=== PATIENT | female | born 1965 | race Caucasian/White ===

== ENCOUNTER 2025-06-22 17:34 | Day surgery (SDC) | payer OTHER, SELFPAY ==
[2025-06-22] VITALS (13 sets, daily range): BP systolic 102–148; BP diastolic 41–78; BMI 35.5; BMI 34.0
--- NOTE | 2025-06-22 11:28 | ED.GENMED ---
History of Present Illness
<Trey Garcia PA-C - Last Filed: 06/22/25 14:26>
General
Chief Complaint: Abdominal Pain
Source: patient
Exam Limitations: none
Time Seen by Provider: 06/22/25 11:16
History of Present Illness
History of Present Illness:
59-year-old female otherwise quite healthy presents complaining of worsening abdominal pain that is now in the right lower quadrant. This started yesterday. There is some nausea without vomiting. She notes a slightly decreased appetite notes the
pain is slightly improved in a position. Pain does not radiate to the back no associated urinary symptoms. She still states she is getting her cycle every now and then. No prior abdominal surgical history. She is here visiting from
[place]. No other complaints
Phy Exam
<Trey Garcia PA-C - Last Filed: 06/22/25 14:26>
Physical Exam
Physical Exam:
General: Well-appearing female no acute respiratory distress
HEENT: Normal cephalic atraumatic heart: Regular rate and rhythm
Lungs: Clear no wheeze
Abdomen is soft tender to the right lower quadrant mild guarding no rebound nondistended
Extremities: No cyanosis or edema
Course
<Trey Garcia PA-C - Last Filed: 06/22/25 14:26>
Orders/Labs/Results
Orders:
Orders
06/22/25 11:27
CT Abd/pelvis W Iv Cont Urgent
Comment:
Reason For Exam: rlq pain
Ketorolac [Toradol] 15 mg IV NOW STA
06/22/25 11:28
Test Result ONCE
06/22/25 11:36
Complete Blood Count/With Diff Urgent
06/22/25 11:37
Comprehensive Metabolic Panel Urgent
HCG, Serum Qualitative Screen Urgent
06/22/25 11:53
0.9% Sodium Chloride 1000 ml [Nss] 1,000 ml IV BOLUS
06/22/25 12:00
0.9% Sodium Chloride 1000 ml [Nss] 1,000 ml IV 2,000 mls/hr
06/22/25 12:48
Urinalysis Reflex To Culture Urgent
Date Specimen was Collected: 06/22/25
Time Specimen was Collected: 11:31
Urine Microscopic Reflex Cult Urgent
06/22/25 14:18
Piperacillin/Tazo 3.375 Gram [Zosyn] 3.375 gram in 50 ml IV NOW
Abnormal Lab Results
06/22/25 06/22/25 06/22/25
11:36 11:37 12:48
WBC 14.4 H 10^3/uL
(4.8-10.8)
MPV 10.8 H fL
(7.4-10.4)
Abs Immat Gran (auto) 0.1 H 10^3/uL
(0-0.05)
Absolute Neuts (auto) 12.4 H 10^3/uL
(1.4-6.5)
Absolute Lymphs (auto) 1.1 L 10^3/uL
(1.2-3.4)
Absolute Monos (auto) 0.8 H 10^3/uL
(0.1-0.6)
Neutrophils % 85.9 H %
(42.2-75.2)
Lymphocytes % 7.6 L %
(20.5-51.1)
Glucose 115 H mg/dl
(70-99)
Total Bilirubin 1.6 H mg/dl
(0.2-1.3)
Ur Occult Blood Reflex 1+ A
(Negative)
Urine RBC 3-6 A /HPF
(0-2)
Urine Bacteria (Reflex) Few A
(Negative)
06/22/25 11:36
06/22/25 11:37
Vital Signs
Initial and Last Documented VS:
Initial Vital Signs
Temp Pulse Resp BP Pulse Ox
36.6 C 103 18 148/78 99
06/22/25 10:52 06/22/25 10:52 06/22/25 10:52 06/22/25 10:52 06/22/25 10:52
Last Documented Vital Signs
Temp Pulse Resp BP Pulse Ox
37.1 C 85 16 121/50 95
06/22/25 11:46 06/22/25 14:16 06/22/25 14:16 06/22/25 14:16 06/22/25 14:16
<Yovani Hughes MD - Last Filed: 06/22/25 14:30>
Orders/Labs/Results
Orders:
Orders
06/22/25 11:27
CT Abd/pelvis W Iv Cont Urgent
Comment:
Reason For Exam: rlq pain
Ketorolac [Toradol] 15 mg IV NOW STA
06/22/25 11:28
Test Result ONCE
06/22/25 11:36
Complete Blood Count/With Diff Urgent
06/22/25 11:37
Comprehensive Metabolic Panel Urgent
HCG, Serum Qualitative Screen Urgent
06/22/25 11:53
0.9% Sodium Chloride 1000 ml [Nss] 1,000 ml IV BOLUS
06/22/25 12:00
0.9% Sodium Chloride 1000 ml [Nss] 1,000 ml IV 2,000 mls/hr
06/22/25 12:48
Urinalysis Reflex To Culture Urgent
Date Specimen was Collected: 06/22/25
Time Specimen was Collected: 11:31
Urine Microscopic Reflex Cult Urgent
06/22/25 14:18
Piperacillin/Tazo 3.375 Gram [Zosyn] 3.375 gram in 50 ml IV NOW
Abnormal Lab Results
0906/22/25 06/22/25
11:36 11:37 12:48
WBC 14.4 H 10^3/uL
(4.8-10.8)
MPV 10.8 H fL
(7.4-10.4)
Abs Immat Gran (auto) 0.1 H 10^3/uL
(0-0.05)
Absolute Neuts (auto) 12.4 H 10^3/uL
(1.4-6.5)
Absolute Lymphs (auto) 1.1 L 10^3/uL
(1.2-3.4)
Absolute Monos (auto) 0.8 H 10^3/uL
(0.1-0.6)
Neutrophils % 85.9 H %
(42.2-75.2)
Lymphocytes % 7.6 L %
(20.5-51.1)
Glucose 115 H mg/dl
(70-99)
Total Bilirubin 1.6 H mg/dl
(0.2-1.3)
Ur Occult Blood Reflex 1+ A
(Negative)
Urine RBC 3-6 A /HPF
(0-2)
Urine Bacteria (Reflex) Few A
(Negative)
06/22/25 11:36
06/22/25 11:37
Vital Signs
Initial and Last Documented VS:
Initial Vital Signs
Temp Pulse Resp BP Pulse Ox
36.6 C 103 18 148/78 99
06/22/25 10:52 06/22/25 10:52 06/22/25 10:52 06/22/25 10:52 06/22/25 10:52
Last Documented Vital Signs
Temp Pulse Resp BP Pulse Ox
37.1 C 85 16 121/50 95
06/22/25 11:46 06/22/25 14:16 06/22/25 14:16 06/22/25 14:16 06/22/25 14:16
<Trey Garcia PA-C - Last Filed: 06/22/25 14:26>
MDM/Problems Addressed
Differential Diagnosis Includes:
Patient with lower abdominal pain more so on the right side. Consider appendicitis versus ovarian pathology versus constipation versus adenopathy. No right upper quadrant tenderness to suggest biliary colic check urine for possible UTI
Labs pending and CT pending otherwise. Toradol given for pain
<Trey Garcia PA-C - Last Filed: 06/22/25 14:26>
*Pulse Oximetry
SaO2: 99
Oxygen Mode of Delivery: Room air
Patient hypoxic: no
*Critical Care Note
Total Time (30-74mins, 75-104mins- exclusive of procedures): Not Applicable
<Trey Garcia PA-C - Last Filed: 06/22/25 14:26>
Update Note
Update Note:
CT performed consistent with acute appendicitis. There is a small extraluminal collection of gas and air posterior to the appendix. Discussed with emergency room attending as well as general surgery. Tere ordered. She received fluids and
Toradol. Will admit to hospital for acute appendicitis
ED Attending Note
<Trey Garcia PA-C - Last Filed: 06/22/25 14:26>
-
Portions of this chart may have been created with voice recognition software.� Occasional wrong word or��sound alike� substitutions may have occurred due to the inherent limitations of voice recognition software.
<Yovani Hughes MD - Last Filed: 06/22/25 14:30>
ED Attending Note
Patient seen and examined by attending physician: Yes
ED Attending Note:
I have seen and evaluated the patient with a [id number] encounter. I have spoken to the advance practicer provider and involved in the medical history, the physical exam, medical decision making.
Evaluation and management service: agree unless noted differently below.
Results interpretation: agree unless noted differently below.
Focused HPI: 59-year-old female with history as noted presents for evaluation of abdominal pain. Patient reports onset of symptoms yesterday and have been constant since that time. Pain located in the right lower abdomen and does not radiate.
Worse with movement. No relieving factors noted. Reports poor appetite and mild nausea no vomiting or diarrhea. No fever noted. No urinary symptoms. No similar symptoms in the past.
Physical exam: Tachycardic but otherwise normal vitals. Abdomen soft, moderate to severe tenderness in the right lower quadrant with voluntary guarding. No masses appreciated.
Medical Decision Makin-year-old female presents with right lower quadrant abdominal pain over the past 24 hours. Her labs showed a leukocytosis to 14.4. Chemistry no clinically significant abnormalities. Urinalysis trace blood no significant
pyuria to suggest infection. CT showed signs concerning for appendicitis with likely microperforation. PA discussed case with general surgery. Will start IV antibiotics.
Discharge Plan
Departure
Patient Disposition: Admit
Date of Disposition: 06/22/25
Time of Disposition: 14:26
Presentation/result/management discussed w/ accepting MD/: daya
Discharge Problem:
Acute appendicitis
Referrals:
PRIVATE,PHYSICIAN [Family Provider, Internal Medicine]
Interventions
Interventions:
*Risk Screen - Suicide Last Done: 06/22/25 10:52
*General Assessment Last Done: 06/22/25 10:52
*Neglect/Abuse Screening Last Done: 06/22/25 10:52
*ED- Fall Risk Assessment Last Done: 06/22/25 11:44
*ED COVID-19 Vaccine History Last Done: 06/22/25 10:52
EM-Bkybcz-Dqvclwyzfy Assessment Last Done: 06/22/25 11:24
Discharge Date and Time
Print Language: KOREAN
[2025-06-22] MEDS: TORADOL 15 MG IV (11:40)
[2025-06-22] MEDS: NSS 1000 IV ×2 (11:53→20:01)
[2025-06-22 11:56] LABS: Hematocrit 39.7 % (37.0-47.0); Hemoglobin 14.0 g/dL (12.0-16.0); Mean Corp Hgb Conc. 35.3 g/dL (33.0-37.0); Mean Corpuscular Volume 85.6 fL (81.0-99.0); Nucleated Red Blood Cells % 0 %; Platelet Count 181 10^3/uL (130-400); Red Cell Dist. Width 12.5 % (11.5-14.5)
[2025-06-22 12:08] LABS: HCG, Serum Qualitative Screen Negative
[2025-06-22 12:14] LABS: ALT (SGPT) 19 U/L (0-35); AST (SGOT) 19 U/L (14-36); Albumin 4.8 g/dl (3.5-5.0); Alkaline Phosphatase 73 U/L (38-126); Blood Urea Nitrogen 7 mg/dl (7-17); Calcium 9.4 mg/dl (8.4-10.2); Carbon Dioxide 25 mmol/L (22-30); Chloride 104 mmol/L (98-107); Estimated Creatinine Clearance 102 ml/min; Glucose 115 mg/dl (70-99); Potassium 3.7 mmol/L (3.5-5.1); Sodium 136 mmol/L (135-145); Total Protein 7.1 g/dl (6.3-8.2); eGFR > 60.00
[2025-06-22 13:22] LABS: Urine Character Clear (Clear)
[2025-06-22 13:30] LABS: Urine White Cell 0-2 /HPF (0-5)
[2025-06-22] MEDS: ZOSYN 50 IV ×2 (14:28→20:35)
--- NOTE | 2025-06-22 14:59 | HPS.HSE ---
Addendum entered and electronically signed by Jeremie Lim MD 06/22/25 17:40:
Patient seen and examined.
Patient is a 59 yo F with a PMH of obesity who presents with 24 to 48 hours of RLQ abdominal pain. She states that her pain began yesterday at around 11:30 AM. She notes some generalized abdominal discomfort which is localized to the RLQ.
Associated nausea, but no vomiting. No fevers or chills. Looser stools, no chronic GI issues. Prior colonoscopy reported to be normal.
Gen: NAD
Abd: soft, tender in RLQ, ND, no diffuse peritonitis
Labs and CT scan were reviewed
Patient is a 59 yo F p/w acute appendicitis
The natural history and pathophysiology of appendicitis was discussed. Anatomy was reviewed. CT scan imaging as a relates to her appendix was reviewed. Options for management including medical management with antibiotics versus surgical
management with appendectomy were considered and discussed. The pros and cons of both approaches was discussed. Specifically, we discussed failing medical management and future episodes of appendicitis versus surgical risks. She does have the
presence of an appendicolith increasing her risks of failure with nonoperative management. Recommend appendectomy.
Plan for laparoscopic appendectomy. Procedure itself, as well as the risks, benefits, and alternatives was discussed. Specifically, we discussed the risks of bleeding, infection, injury to surrounding structures (bowel), staple line leak, need for
open procedure. Typical postprocedural coverage including activity restrictions and pain control were discussed. All questions answered. Consent signed.
-- Laparoscopic appendectomy
-- NPO, IVF
-- Abx: Zosyn
-- Admit post-op
Original Note:
Family Physician
-
Family Physician: PHYSICIAN PRIVATE
Chief Complaint
-
RLQ pain
History of Present Illness
Ms Salazar is a 59 yo female with a h/o left knee arthroscopy who presents with abdominal pain which began yesterday around 1130 am. She notes the pain was initially generalized but is now localized to her RLQ. She denies vomiting but has had mild
nausea and no appetite since onset of symptoms. She denies fevers or chills. She denies voiding changes but does note she has passed some loose stools. Focal RLQ tenderness present on exam.
Medical History
Past Medical History
Past Medical History: Reports None
Past Surgical History: Reports Orthopedic (left knee arthroscopy)
Social History
Tobacco: Non-smoker
Alcohol: Occasional
Personal:
Living: With Family (Lives in [place], [place] with spouse. Visiting [place] a [place] )
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
Family History
Family History: Not pertinent
Allergies / Home Medications
Allergies reflects when Allergies were last updated in [facility].
Home Medications with original date entered in [facility]
Allergy/Medication List:
Patient Allergies
Allergy/AdvReac Type Severity Reaction Status Date / Time
No Known Allergies Allergy Unverified 06/22/25 10:51
�Medication �Instructions �Recorded �Confirmed �Type
bismuth subsalicylate 262 mg 262 mg PO DAILYPRN PRN gerd 06/22/25 06/22/25 History
tablet (Pepto-Bismol)
estradiol 0.1 mg/24 hr semiweekly 1 patch transdermal SUTH 06/22/25 06/22/25 History
transdermal patch
magnesium oxide 200 mg PO HS 06/22/25 06/22/25 History
meloxicam 15 mg tablet 15 mg PO DAILYPRN PRN mild pain 06/22/25 06/22/25 History
methocarbamol 500 mg tablet 500 mg PO Q8HPRN PRN spasms 06/22/25 06/22/25 History
progesterone micronized 200 mg 200 mg PO HS 06/22/25 06/22/25 History
capsule
Review of Systems
-
History Source: Patient and Family
A 12 point ROS was completed and negative except as noted: Yes
Physical Exam
Vital Signs
Vital Signs
Temp Pulse Resp BP Pulse Ox
98.8 F 85 16 121/50 95
06/22/25 11:46 06/22/25 14:16 06/22/25 14:16 06/22/25 14:16 06/22/25 14:16
Physical Exam
General: Well Developed and Well Nourished
HEENT: NormoCephalic and Moist mucous membranes
Respiratory: Non Labored Respirations
GI: Soft, Non Distended and Tender (RLQ)
Skin: Warm and Dry
Neuro: Awake, Alert and AO x 3
Laboratory Results
-
06/22/25 11:36
06/22/25 11:37
Laboratory Results
Total Bilirubin 1.6 mg/dl (0.2-1.3) H 06/22/25 11:37
AST 19 U/L (14-36) 06/22/25 11:37
ALT 19 U/L (0-35) 06/22/25 11:37
Alkaline Phosphatase 73 U/L (38-126) 06/22/25 11:37
Data Reviewed
-
CT Scan: Image Personally Visualized and interpreted, Report Reviewed by me, Discussed with Physician, Discussed with Patient and Discussed with Family
Lab Data: Labs Reviewed by me, Discussed with Physician, Discussed with Patient and Discussed with Family
Impression/Plan
-
IMPRESSION: 59 yo female presenting with abdominal pain for just over 24hours localizing to the RLQ with anorexia/nausea. Leukocytosis present. CT imaging consistent with acute appendicitis with small amount of gas/fluid present posterior to the
appendix, ?appendiceal rupture. Afebrile, vitals stable.
PLAN:
Zosyn IV given in the ED
Keep NPO
OR today for lap appi
SCDs for vte ppx
--- NOTE | 2025-06-22 17:37 | W.SUR.PREOP ---
Pre-Operative Surgical Note
-
I have examined this patient prior to the performance of the scheduled procedure.
The patient's condition is unchanged from the time of the current History and
Physical and the patient is able to undergo the scheduled procedure.
--- NOTE | 2025-06-22 18:50 | W.IMMPOSTOP ---
Surgical Immed Post Op Note
-
Primary Surgeon: Raphael
Assisting Surgeon: None
Pre-op Diagnosis: Acute appendicitis
Post-op Diagnosis: Acute gangrenous appendicitis
Procedure Performed: Laparoscopic appendectomy
Anesthesia Type: General
Specimen / Cultures:
1. Appendix
Estimated Blood Loss: 3 cc
Complications: None
Operative Findings:
1. Acutely inflamed gangrenous appendix, no osbaldo perforation or abscess formation, turbid fluid within pelvis suctioned clear
2. Mesentery taken with Ligasure, base with pitt load stapler
Plan:
-- Clears for tonight, ADAT tomorrow
-- Discharge on 4 days Augmentin
--- NOTE | 2025-06-22 21:00 | PTCARENOTE ---
Patient transferred to from PACU. Significant other at bedside. VSS. 4 lap sites C/D/I with surgical glue intact. All questions answered at this time. Nursing assessment outgoing.
[2025-06-23] MEDS: ZOSYN 50 IV ×2 (02:00→07:46)
[2025-06-23] MEDS: TYLENOL 650 MG PO (02:06)
[2025-06-23 03:00] VITALS: BP 118/63
[2025-06-23 07:15] VITALS: BP 111/62
[2025-06-23] MEDS: PROTONIX IV 40 MG IV (07:46)
[2025-06-23] MEDS: NSS (PRESERVATIVE FREE) 10 ML IV (07:47)
--- NOTE | 2025-06-23 10:53 | W.PN.GS2 ---
Today's Communication / Plan
-
Dispo planning
Assessment / Plan
-
59 yo female who presented with acute gangrenous appendicitis now POD #1 lap appi
AFVSS
Doing well post operatively
Tolerating diet
Plan:
Continue regular diet
Analgesics prn
OOB/Ambulating
Dispo planning
Subjective Data
-
Date of Service: June 23, 2025
Pt seen and examined at bedside. Denies n/v. OOB ambulating. Tolerating diet. Passing flatus.
Objective Data
-
Intake and Output
06/22/25 06/23/25 06/24/25
06:59 06:59 06:59
Intake Total 100 / 100 50 / 50
Balance 100 / 100 50 / 50
Intake:
IV fluids (Total) 100 / 100
Normosols 100 / 100
IV piggybacks 50 / 50
Other:
Number of approximated MODERATE 1
amounts of urine
Vital Signs
Temp Pulse Resp BP Pulse Ox
98.3 F 78 16 111/62 94
06/23/25 07:15 06/23/25 07:15 06/23/25 07:15 06/23/25 07:15 06/23/25 10:12
Lab Results
06/22/25 11:36
06/22/25 11:37
Calcium 9.4 mg/dl (8.4-10.2) 06/22/25 11:37
Total Bilirubin 1.6 mg/dl (0.2-1.3) H 06/22/25 11:37
AST 19 U/L (14-36) 06/22/25 11:37
ALT 19 U/L (0-35) 06/22/25 11:37
Alkaline Phosphatase 73 U/L (38-126) 06/22/25 11:37
Total Protein 7.1 g/dl (6.3-8.2) 06/22/25 11:37
Albumin 4.8 g/dl (3.5-5.0) 06/22/25 11:37
Physical Exam
-
NAD
ABD soft, nd, nt
Incisions healing well, approximated with intact glue
Patient has a carrington catheter: No
Patient has a central line: No
[2025-06-23 11:00] VITALS: BP 110/68
== END 2025-06-23 11:50 | disposition home or self-care (01) ==
LOC: SDS 17:34
PROVIDERS: Physician Assistant; ATTENDING PHYSICIAN Surgery; EMERGENCY PHYSICIAN Emergency Medicine
DX: K35.891 Other acute appendicitis without perforation, with gangrene (principal); E66.01 Morbid (severe) obesity due to excess calories
CPT/HCPCS: 44970; 74177; 80053; 81003; 81015; 84703; 85025; 88304; 96361; 96365; 96375; 99285; J1610; Q9967